=== PATIENT | female | born 1965 | race Caucasian/White ===

== ENCOUNTER 2016-09-22 07:49 | Emergency (ER) | payer SELFPAY ==
[~2016-09-22] VITALS: Ht 157.5 cm; Wt 85.0 kg
[~2016-09-22 07:49] MED LIST: AMOXICILLIN500 MG OR; AMOXICILLIN500 MG PO; CALCIUM 500+D500 + OR; CIPRO500 MG OR; CIPROFLOXACN500 MG PO; FLEXERIL OR; FLEXERIL10 MG PO; HYDROCO/APAP1 TA9 PO; LORTAB5 PO; METRONIDAZOL500 MG PO; NAPROSYN500 MG OR; NAPROXEN500 MG OR; NEXIUM40 M1 PO; NITROSTAT0.4 MG PO; NO HOME MEDS; NO MEDS; OMEPRAZOLE20 MG PO; ONDANSETRON4 MG PO; PRILOSEC OTC20 MG OR; PROMETHAZINE25 MG OR; RANITIDINE150 MG OR; RANITIDINE150 MG PO; TRAMADOL HCL50 MG OR; TRAMADOL HCL50 MG PO; ULTRAM50 M1 PO; ULTRAM50 MG OR; ZOFRAN ODT8 MG SL
[2016-09-22] MEDS ORDERED: CYMBALTA20 MG PO (08:19)
[2016-09-22] MEDS ORDERED: LORTAB 5-325 MG1 TAB PO (10:11)
[2016-09-22] MEDS ORDERED: MOTRIN800 MG PO (10:11)
[2016-09-22 10:59] VITALS: BP 117/71
== END 2016-09-22 10:59 | disposition home or self-care (01) | DRG 558 ==
LOC: ED 07:49
DX: M77.52 Other enthesopathy of left foot and ankle (principal); K21.9 Gastro-esophageal reflux disease without esophagitis; M25.552 Pain in left hip; M77.51 Other enthesopathy of right foot and ankle; Z87.440 Personal history of urinary (tract) infections

== ENCOUNTER 2016-11-13 17:31 | Emergency (ER) | payer SELFPAY ==
[~2016-11-13] VITALS: Ht 157.5 cm; Wt 92.2 kg
[~2016-11-13 17:31] MED LIST changes: +CYMBALTA20 MG PO; +LORTAB 5-325 MG1 TAB PO; +MOTRIN800 MG PO
[2016-11-13 18:28] LABS: HEMATOCRIT 37.7 % (37.0-47.0); HEMOGLOBIN 12.3 g/dl (12.0-16.0); IMMATURE GRANULOCYTES 0.4 % (0.0-1.0); MEAN CELL VOLUME 89.1 fL CALC (80.0-100.0); MEAN CORPUSCULAR HGB 29.1 pG CALC (26.0-32.0); MEAN CORPUSCULAR HGB CONC 32.6 g/L CALC (32.0-36.0); NEUT# 2.7 thou/uL (2.00-7.15); RED BLOOD COUNT 4.23 mill/uL (4.20-5.60); RED CELL DISTRI WIDTH 13.8 % (11.5-15.5)
[2016-11-13 18:39] LABS: ALBUMIN 4.2 g/dL (3.2-5.0); ALKALINE PHOSPHATASE 45 u/l (38-126); AMYLASE 40 u/l (30-110); ANION GAP 16 (6-22 (CALC)); BILIRUBIN, TOTAL 0.6 mg/dL (0.0-1.4); BUN 10 mg/dL (7-17); BUN/CREATININE RATIO 12 (12-20 (CALC)); CALCIUM 9.3 mg/dL (8.4-10.2); CARBON DIOXIDE 25 mmol/l (22-30); CHLORIDE 103 mmol/l (95-108); CREATININE 0.9 mg/dL (0.5-1.0); GFR > 60 ML/MIN (>=60 (CALC)); GFR FOR AFR.AMER. > 60 ML/MIN (>=60 (CALC)); GLUCOSE 98 mg/dL (65-105); LIPASE 250 u/l (23-300); POTASSIUM 3.8 mmol/l (3.5-5.1); SGOT/AST 22 u/l (14-36); SGPT/ALT 32 u/l (9-52); SODIUM 140 mmol/l (137-146)
[2016-11-13 18:47] LABS: INFLUENZA A NONE DETECTED (NONE DETECT); INFLUENZA B NONE DETECTED (NONE DETECT)
[2016-11-13 18:50] LABS: MYOGLOBIN 22 ng/mL (0 - 62)
[2016-11-13 19:33] LABS: URINE BILIRUBIN - DIPSTICK NEGATIVE (NEGATIVE); URINE BLOOD DIPSTICK SMALL (NEGATIVE); URINE CLARITY CLEAR; URINE COLOR YELLOW; URINE GLUCOSE - DIPSTICK NEGATIVE (NEGATIVE); URINE KETONE NEGATIVE (NEGATIVE); URINE LEUK ESTERASE NEGATIVE (NEGATIVE); URINE NITRITE - DIPSTICK NEGATIVE (Negative); URINE PH 6.5 (4.5-8.0); URINE PROTEIN - DIPSTICK NEGATIVE (NEG-TRACE); URINE UROBILINOGEN - DIPSTICK 0.2 E.U./dL (0.2)
[2016-11-13 19:41] LABS: URINE SQUAMOUS EPITHELIAL CELL FEW EPI/hpf (0-FEW)
[2016-11-13] MEDS ORDERED: LEVAQUIN750 M1 PO (20:15)
[2016-11-13 22:37] VITALS: BP 110/74
== END 2016-11-13 22:40 | disposition home or self-care (01) | DRG 195 ==
LOC: ED 17:31
PROVIDERS: Emergency Medicine
DX: J18.9 Pneumonia, unspecified organism (principal); R10.32 Left lower quadrant pain

== ENCOUNTER 2017-01-04 08:28 | Emergency (ER) | payer OTHER ==
[~2017-01-04] VITALS: Ht 157.5 cm; Wt 100.0 kg
[~2017-01-04 08:28] MED LIST changes: +LEVAQUIN750 M1 PO
[2017-01-04] MEDS ORDERED: EC-NAPROSYN500 MG PO (09:52)
[2017-01-04 10:04] VITALS: BP 102/79
== END 2017-01-04 10:07 | disposition home or self-care (01) | DRG 563 ==
LOC: ED 08:28
DX: S63.501A Unspecified sprain of right wrist, initial encounter (principal); K21.9 Gastro-esophageal reflux disease without esophagitis; S43.401A Unspecified sprain of right shoulder joint, initial encounter; Z87.440 Personal history of urinary (tract) infections; W18.09XA Striking against other object with subsequent fall, initial encounter; Y92.481 Parking lot as the place of occurrence of the external cause

== ENCOUNTER 2017-12-03 20:22 | Emergency (ER) | payer OTHER ==
[~2017-12-03] VITALS: Ht 157.5 cm; Wt 90.9 kg
[~2017-12-03 20:22] MED LIST changes: +EC-NAPROSYN500 MG PO
[2017-12-03 21:17] LABS: URINE BILIRUBIN - DIPSTICK NEGATIVE (NEGATIVE); URINE BLOOD DIPSTICK TRACE-INTACT (NEGATIVE); URINE COLOR YELLOW; URINE GLUCOSE - DIPSTICK NEGATIVE (NEGATIVE); URINE KETONE NEGATIVE (NEGATIVE); URINE LEUK ESTERASE NEGATIVE (NEGATIVE); URINE NITRITE - DIPSTICK NEGATIVE (Negative); URINE PH 5.5 (4.5-8.0); URINE PROTEIN - DIPSTICK NEGATIVE (NEG-TRACE); URINE SPECIFIC GRAVITY >=1.030; URINE UROBILINOGEN - DIPSTICK 0.2 E.U./dL (0.2)
[2017-12-03 21:18] LABS: URINE CLARITY SL CLOUDY
[2017-12-03 21:20] LABS: HEMATOCRIT 41.5 % (37.0-47.0); HEMOGLOBIN 13.6 g/dl (12.0-16.0); IMMATURE GRANULOCYTES 0.4 % (0.0-1.0); MEAN CELL VOLUME 91.2 fL CALC (80.0-100.0); MEAN CORPUSCULAR HGB 29.9 pG CALC (26.0-32.0); MEAN CORPUSCULAR HGB CONC 32.8 g/L CALC (32.0-36.0); NEUT# 2.98 thou/uL (2.00-7.15); RED BLOOD COUNT 4.55 mill/uL (4.20-5.60); RED CELL DISTRI WIDTH 13.6 % (11.5-15.5)
[2017-12-03 21:24] LABS: BARBITURATES NEGATIVE (NEGATIVE); COCAINE NEGATIVE (NEGATIVE); METHADONE NEGATIVE (NEGATIVE); OXCYCODONE NEGATIVE (NEGATIVE); TETRAHYDROCANNABIONOL NEGATIVE (NEGATIVE); TRICYLIC ANTIDEPRESSANTS NEGATIVE (NEGATIVE)
[2017-12-03 22:04] LABS: ALBUMIN 4.6 g/dL (3.2-5.0); ALKALINE PHOSPHATASE 56 u/l (38-126); ANION GAP 18 (6-22 (CALC)); BILIRUBIN, TOTAL 0.5 mg/dL (0.0-1.4); BUN 14 mg/dL (7-17); BUN/CREATININE RATIO 21 (12-20 (CALC)); CARBON DIOXIDE 24 mmol/l (22-30); CHLORIDE 105 mmol/l (95-108); CREATININE 0.7 mg/dL (0.5-1.0); GFR > 60 ML/MIN (>=60 (CALC)); GFR FOR AFR.AMER. > 60 ML/MIN (>=60 (CALC)); POTASSIUM 4.2 mmol/l (3.5-5.1); SGPT/ALT 131 u/l (9-52); SODIUM 142 mmol/l (137-146); TOTAL PROTEIN 7.8 g/dL (6.3-8.2)
[2017-12-03 22:05] LABS: SGOT/AST 92 u/l (14-36)
[2017-12-03 22:16] LABS: MYOGLOBIN 21 ng/mL (0 - 62)
[2017-12-04 00:23] VITALS: BP 131/90
== END 2017-12-03 23:02 | disposition short-term general hospital (02) | DRG 149 ==
LOC: ED 20:22
PROVIDERS: Emergency Medicine
DX: R42 Dizziness and giddiness (principal); R51 Headache; R93.0 Abnormal findings on diagnostic imaging of skull and head, not elsewhere classified

== ENCOUNTER 2018-09-02 09:32 | Emergency (ER) | payer OTHER ==
[~2018-09-02] VITALS: Ht 157.5 cm; Wt 98.0 kg
[2018-09-02] MEDS ORDERED: NEXIUM20 MG PO (09:57)
[2018-09-02] MEDS ORDERED: MOTRIN400 MG PO (09:58)
[2018-09-02] MEDS ORDERED: VOLTAREN1%GEL TOP (09:58)
[2018-09-02 10:49] VITALS: BP 109/64
== END 2018-09-02 10:49 | disposition home or self-care (01) | DRG 563 ==
LOC: ED 09:32
PROC: 2W3RX1Z Immobilization of Left Lower Leg using Splint (ICD-10-PCS; principal; 2018-09-02)
DX: S86.912A Strain of unspecified muscle(s) and tendon(s) at lower leg level, left leg, initial encounter (principal); M25.562 Pain in left knee; M17.12 Unilateral primary osteoarthritis, left knee; X58.XXXA Exposure to other specified factors, initial encounter; Y93.41 Activity, dancing; Y92.009 Unspecified place in unspecified non-institutional (private) residence as the place of occurrence of the external cause
CPT/HCPCS: L1830

== ENCOUNTER 2019-09-09 | Emergency (ER) | payer OTHER ==
[~2019-09-09] MED LIST changes: +MOTRIN400 MG PO; +NEXIUM20 MG PO; +VOLTAREN1%GEL TOP
== END 2019-09-09 18:00 | disposition home or self-care (01) | DRG 566 ==
DX: M77.31 Calcaneal spur, right foot (principal)